=== PATIENT | male | born 1935 | race Caucasian/White ===

== ENCOUNTER 2019-08-19 13:22 | Inpatient (IN) ==
[2019-08-19] MEDS ORDERED: VERSED IV ONE (13:44)
[2019-08-19] MEDS ORDERED: VERSED ONE (13:45)
[2019-08-19] MEDS ORDERED: QUELICIN IV ONE (13:45)
[2019-08-19] MEDS ORDERED: QUELICIN ONE (13:45)
[2019-08-19] MEDS ORDERED: NS 1,000 ML IV ONE (13:47)
[2019-08-19] MEDS ORDERED: NS 1,000 ML ONE (13:49)
[2019-08-19] MEDS ORDERED: VERSED 100 MG in NS 80 ML IV SCH (14:00)
--- NOTE | 2019-08-19 14:19 | Diag Imaging Result Doc PS360 ---
EXAM: CHEST-PORTABLE HISTORY: respiratory distress TECHNIQUE: Single view COMPARISON: 09/22/2017 FINDINGS: There is an endotracheal tube located 3 cm above the shanti. A nasogastric tube overlies the esophagus and stomach. The heart is mildly prominent. The lungs are poorly expanded. No consolidation. Questionable perihilar infiltrates. Prominent atherosclerosis in the aortic arch. IMPRESSION: Endotracheal tube in good position. Questionable perihilar infiltrates. Electronically signed by Ethan Crook 08/19/2019 2:16 PM
[2019-08-19 14:32] LABS: ALLEN TEST YES; BE -13.5 mmoll (-3.0-3.0); BLOOD TYPE ARTERIAL; METHB 0.8 % (0.0-1.5); O2(CT) 19.7 mL/dL (15.0-23.0); PCO2(98.6) 29 mmHg (35-45); PO2(98.6) 149 mmHg (60-100); SAMPLE BLOOD; SAO2 99.5 % (95.0-100.0); SRATE 15 BPM; THB 14.3 g/dL (11.5-17.4); TVOL 500 mL; pH(98.6) 7.24 (7.35-7.45)
[2019-08-19 14:35] LABS: HCO3-(ACT) 14.4 mmoll (20.0-26.0); MODALITY VENTILATOR
[2019-08-19] MEDS ORDERED: SODIUM BICARBONATE 8.4% IV PUSH ONE ×3 (14:37→16:10)
[2019-08-19] MEDS: LEVOPHED 8 MG in D5 1/2 NS 250 ML IV SCH (14:44)
[2019-08-19] MEDS ORDERED: ZOSYN 3.375 GM in NS 50 ML IV ONE (14:50)
[2019-08-19] MEDS ORDERED: SODIUM BICARBONATE 8.4% ONE (14:53)
[2019-08-19] MEDS ORDERED: EPINEPHRINE 4 MG in NS 250 ML IV SCH (15:00)
--- NOTE | 2019-08-19 15:12 | PROVIDER DOCUMENTATION ---
This chart was entered by Jocelyne De Santiago Scribe, acting as scribe for Darrell Doll MD. HPI-Respiratory General - General Source: patient - History of Present Illness-Resp Quality of Pain: reports: tightness Severity in ED: reports: moderate, severe Onset/Duration: reports: this morning Timing: reports: still present, changing over time Cough Quality/Degree: reports: no cough Current Respiratory Medication Therapy: Initiated see nurses note Modifying Factors: worse with: exertion, deep breath Associated Symptoms: reports: hurts to breathe, shortness of breath, short of breath. denies: cough, fever/chills Similar Symptoms Previously?: Yes Recently seen or treated by another doctor?: Yes (was seen at [facility] 1 week ago) <Darrell Doll - Last Filed: 08/19/19 17:02> <Brandin Gorman - Last Filed: 08/19/19 17:18> - General Chief Complaint: Shortness of Breath Stated Complaint: BREATHING DIFFICULTY Time Seen by Provider: 08/19/19 13:32 Allergies/Adverse Reactions: Patient Allergies Allergy/AdvReac Type Severity Reaction Status Date / Time No Known Allergies Allergy Verified 06/28/18 13:05 Home Medications: Home Medication List Medication Instructions Recorded Confirmed Last Taken Type Diltiazem HCl [Diltiazem 24Hr ER 180 mg PO DAILY 09/22/17 06/28/18 07/05/18 07:15 History (Cd)] Insulin Glargine,Hum.rec.anlog 20 unit SQ DAILY 09/22/17 07/05/18 07/05/18 05:30 History [Lantus Solostar] Multivits,Th W-Ca,Fe,Oth Min 1 each PO DAILY 09/22/17 07/05/18 07/05/18 07:15 History [Thera Plus] Amlodipine [Norvasc] 10 mg PO DAILY 05/23/18 06/28/18 07/05/18 07:15 History Ferrous Sulfate 2 tab PO QHS 05/23/18 07/05/18 07/05/18 07:15 History Metoprolol [Lopressor] 0.5 tab PO BID 05/23/18 06/28/18 07/05/18 07:15 History Sevelamer Carbonate [Renvela] 0.8 gm PO DAILY 05/23/18 07/05/18 07/05/18 07:15 History Simvastatin 0.5 tab PO DAILY 05/23/18 07/05/18 07/05/18 07:15 History Hydrocodone/APAP 7.5 mg/325 mg 1 ea PO Q6H PRN PRN #20 tab 07/05/18 Unknown Rx [Roslyn-7.5] - History of Present Illness-Resp Nature of Presenting Problem: 84yowm presents to ED by EMS cc severe shortness of breath. Pt reports he was tested for COVID-[address] Granados and the test was negative. He denies F/C/Cough/N/V/D. He is a dialysis pt and was unable to go today to sever SOB. He is in moderate respiratory distress upon exam. The negative COVID-19 test record is attached, in print, to pt chart. (Darrell Doll) Review of Systems - Adult - REVIEW OF SYSTEMS - ADULT Constitutional: reports: see HPI. denies: chills, fever, fatique Eyes: reports: no symptoms reported Ears, Nose, Mouth & Throat: reports: no symptoms reported Cardiovascular: reports: no symptoms reported Respiratory: reports: see HPI, dyspnea on exertion, shortness of breath. denies: cough, wheezing Gastrointestinal: reports: see HPI. denies: diarrhea, nausea, vomiting Genitourinary: reports: no symptoms reported Musculoskeletal: reports: no symptoms reported Integumentary: reports: no symptoms reported Neurological: reports: no symptoms reported Psychiatric: reports: no symptoms reported Endocrine: reports: no symptoms reported Hematologic/Lymphatic: reports: no symptoms reported Allergic/Immunologic: reports: no symptoms reported All Other Systems: Reviewed and Negative <Darrell Doll - Last Filed: 08/19/19 17:02> Past History - Adult - PAST MEDICAL HISTORY-ADULT Review of Records: reports: Nursing Assessment Review, Medications Reviewed, Social history reviewed & non-contributory. Major Childhood Illnesses: reports: denies history Cardiovascular: reports: HTN Respiratory: reports: denies history Gastrointestinal: reports: denies history Obstetrical/Gynecological: reports: denies history Genitourinary: reports: kidney disease Musculoskeletal: reports: denies history Neurological: reports: denies history Endocrine/Immune: reports: Diabetes Other Conditions: reports: denies history - PRIOR SURGERIES/PROCEDURES Surgical/Procedure History: reports: reviewed, not pertinent - IMMUNIZATION STATUS Childhood Immunizations: See Nurse Assessment Flu Vaccine: See Nurse Assessment - FAMILY HISTORY Family History: reviewed, not pertinent <Darrell Doll - Last Filed: 08/19/19 17:02> Physical Exam-General - PHYSICAL EXAM-ADULT Initial Vital Signs Reviewed: Yes - CONSTITUTIONAL General Appearance: alert, moderate distress. negative: anxious, combative - EYES Eyes: PERRL/EOMI, pink conjunctivae. negative: photophobia - HEAD, EARS, NOSE, MOUTH & THROAT HENMT: normocephalic/atraumatic, moist mucous membranes. negative: angioedema - NECK Neck: non-tender, full range of motion, supple, normal inspection. negative: lymphadenopathy - RESPIRATORY Respiratory: chest non-tender, respiratory distress (moderate), retractions. negative: lungs clear (no sounds heard) - CARDIOVASCULAR Cardiovascular: normal peripheral pulses, regular rate, rhythm. negative: bradycardia, tachycardia - GASTROINTESTINAL (ABDOMEN) Abdominal Exam: normal bowel sounds, non tender, soft. negative: guarding, rebound - MUSCULOSKELETAL Extremity: normal inspection. negative: deformity - SKIN Integumentary: normal color, normal turgor, warm/dry. negative: diaphoresis, jaundice, rash - PSYCHIATRIC Psych/Mental Status: normal mood/affect, oriented x 3. negative: anxious <Darrell Doll - Last Filed: 08/19/19 17:02> Progress - PLAN OF CARE/RESULTS Result Diagrams: 08/19/19 13:40 08/19/19 13:40 - EKG 1 Time of EKG reading by physician:: 15:01 EKG Read and Signed by:: Darrell Doll EKG Interpretation (*Must complete 3 of following elements*): Abnormal (Possible lateral infarct, age undetermined; inferior infarct, age undetermined) Rate: 83 Rhythm: Sinus w/1st degree AV block Hundred: left QRS: RBB WV Interval: normal - XRAY 1 XRAY: Bilateral XRAY Study: Chest Impression: See EMR Report (IMPRESSION: Endotracheal tube in good position. Questionable perihilar infiltrates. Electronically signed by Ethan Crook 08/19/2019 2:16 PM) - CONSULTS/PCP/HOSPITALIST Notification #1 *Consult/PCP/Hospitalist*: Dr. Granados Time Discussed: 14:39 Consult Disposition: Will see in ED #2 Consult: Brandie/DIRECTOR CARDIOLOGY Time Discussed: 16:43 Consult Disposition: Admit <Darrell Doll - Last Filed: 08/19/19 17:02> - PLAN OF CARE/RESULTS Result Diagrams: 08/19/19 13:40 08/19/19 13:40 <Brandin Gorman - Last Filed: 08/19/19 17:18> - PLAN OF CARE/RESULTS Progress/Plan/Lab Results: Vital Signs - 8 hr 08/19/19 13:32 08/19/19 14:04 08/19/19 14:11 Temperature 96.8 F L Pulse Rate 80 74 72 Respiratory Rate 40 H 16 19 Blood Pressure 97/65 85/58 85/49 08/19/19 16:31 08/19/19 16:55 08/19/19 17:03 Temperature 97.5 F L Pulse Rate 89 91 H 92 H Respiratory Rate 28 H 25 H 26 H Blood Pressure 97/56 99/85 114/73 08/19/19 16:16 Influenza Screen - Final Nasopharyngeal Laboratory Results - last 24 hr 08/19/19 08/19/19 08/19/19 13:40 13:40 13:40 WBC RBC Hgb Hct MCV MCH MCHC RDW Std Deviation Plt Count MPV Immature Gran % (Auto) Neut % (Auto) Lymph % (Auto) Cache % (Auto) Eos % (Auto) Baso % (Auto) Immature Gran # (Auto) Neut # (Auto) Lymph # (Auto) Cache # (Auto) Eos # (Auto) Baso # (Auto) PT INR PTT (Actin FS) Specimen Type Sample Site pH pCO2 pO2 HCO3 Base Excess Oxyhemoglobin ABG O2 Sat (Calculated) ABG O2 Saturation ABG Carboxyhemoglobin ABG Methemoglobin Graham Test A-a O2 Difference Total Hemoglobin Lactate Blood Gas Modality Spontaneous Rate FiO2 % Tidal Volume PEEP Sodium 136 Potassium 6.9 H* Chloride 87 L Carbon Dioxide 15 L Anion Gap 34 BUN 67 H Creatinine 7.5 H Estimated GFR/1.73 m2 7 BUN/Creatinine Ratio 9 Glucose 242 H Calculated Osmolality 299 Calcium 8.8 Total Bilirubin 0.95 AST 74 H ALT 56 H Alkaline Phosphatase 234 H Creatine Kinase Troponin T High Sens 118 H* Sph-Y-Nqlvnsxzjbh Pept > 02155 H Total Protein 6.8 Albumin 3.7 Globulin 3.1 Albumin/Globulin Ratio 1.2 Plasma Lactate 08/19/19 08/19/19 08/19/19 13:40 13:40 13:40 WBC 19.84 H RBC 4.31 L Hgb 14.8 Hct 44.0 MCV 102.1 H MCH 34.3 H MCHC 33.6 RDW Std Deviation 16.8 H Plt Count 168 MPV 12.1 H Immature Gran % (Auto) 0.5 Neut % (Auto) 80.3 H Lymph % (Auto) 6.0 L Cache % (Auto) 12.8 H Eos % (Auto) 0.1 Baso % (Auto) 0.3 Immature Gran # (Auto) 0.10 H Neut # (Auto) 15.95 H Lymph # (Auto) 1.19 L Cache # (Auto) 2.53 H Eos # (Auto) 0.01 Baso # (Auto) 0.06 PT 18.6 H INR 1.53 PTT (Actin FS) 29.8 Specimen Type Sample Site pH pCO2 pO2 HCO3 Base Excess Oxyhemoglobin ABG O2 Sat (Calculated) ABG O2 Saturation ABG Carboxyhemoglobin ABG Methemoglobin Graham Test A-a O2 Difference Total Hemoglobin Lactate Blood Gas Modality Spontaneous Rate FiO2 % Tidal Volume PEEP Sodium Potassium Chloride Carbon Dioxide Anion Gap BUN Creatinine Estimated GFR/1.73 m2 BUN/Creatinine Ratio Glucose Calculated Osmolality Calcium Total Bilirubin AST ALT Alkaline Phosphatase Creatine Kinase Troponin T High Sens Bps-B-Joaklqdkxzb Pept Total Protein Albumin Globulin Albumin/Globulin Ratio Plasma Lactate 8.8 H* 08/19/19 08/19/19 08/19/19 13:40 14:25 16:50 WBC RBC Hgb Hct MCV MCH MCHC RDW Std Deviation Plt Count MPV Immature Gran % (Auto) Neut % (Auto) Lymph % (Auto) Cache % (Auto) Eos % (Auto) Baso % (Auto) Immature Gran # (Auto) Neut # (Auto) Lymph # (Auto) Cache # (Auto) Eos # (Auto) Baso # (Auto) PT INR PTT (Actin FS) Specimen Type ARTERIAL ARTERIAL Sample Site L RADIAL L RADIAL pH 7.24 L 7.31 L pCO2 29 L 34 L pO2 149 H 200 H HCO3 14.4 L 18.5 L Base Excess -13.5 L -8.2 L Oxyhemoglobin 97.0 97.4 ABG O2 Sat (Calculated) 19.7 19.3 ABG O2 Saturation 99.5 99.5 ABG Carboxyhemoglobin 1.80 1.30 ABG Methemoglobin 0.8 0.8 Graham Test YES YES A-a O2 Difference 528.0 471.0 Total Hemoglobin 14.3 13.8 Lactate 9.30 H* 8.10 H* Blood Gas Modality VENTILATOR VENTILATOR Spontaneous Rate 15 15 FiO2 % 100.0 100.0 Tidal Volume 500 500 PEEP 5.0 5.0 Sodium Potassium Chloride Carbon Dioxide Anion Gap BUN Creatinine Estimated GFR/1.73 m2 BUN/Creatinine Ratio Glucose Calculated Osmolality Calcium Total Bilirubin AST ALT Alkaline Phosphatase Creatine Kinase 162 Troponin T High Sens Jri-K-Qhybqioljda Pept Total Protein Albumin Globulin Albumin/Globulin Ratio Plasma Lactate Orders Category Date Time Status Cardiac Monitoring NOW Care 08/19/19 15:33 Active Isolation [Isolation Precautions Setup] NOW Care 08/19/19 14:02 Active Notify Provider of NEWS Score NOW Care 08/19/19 15:33 Active CHEST-1 VIEW [RAD] Stat Exams 08/19/19 15:33 Completed CHEST-PORTABLE [RAD] Stat Exams 08/19/19 13:34 Completed ABG [RESP] Routine Lab 08/19/19 14:25 Completed ABG [RESP] Routine Lab 08/19/19 16:50 Completed BLOOD CULTURE [BLDCUL] Stat Lab 08/19/19 14:16 Results CBC WITH ELECTRONIC DIFF [HEME] Stat Lab 08/19/19 13:40 Completed CK PROFILE [SP CHEM] Stat Lab 08/19/19 13:40 Completed COMPREHENSIVE METABOLIC PANEL [CHEM] Stat Lab 08/19/19 13:40 Completed INFLUENZA SCREEN A/B Stat Lab 08/19/19 16:16 Completed LACTATE, PLASMA [CHEM] Lab 08/19/19 18:45 Uncollected LACTATE, PLASMA [CHEM] Lab 08/19/19 21:45 Uncollected LACTATE, PLASMA [CHEM] Q3H Lab 08/19/19 13:40 Completed PRO B-NATRIURETIC PEPTIDE Stat Lab 08/19/19 13:40 Completed PT [PROTIME WITH INR] [COAG] Stat Lab 08/19/19 13:40 Completed PTT [COAG] Stat Lab 08/19/19 13:40 Completed TROPONIN T HIGH SENSITIVITY Stat Lab 08/19/19 13:40 Completed URINALYSIS W/POSS RFLX CULT [URINALYSIS] Stat Lab 08/19/19 15:33 Uncollected 0.9% Sodium Chloride Inj [Ns] 1,000 ml Med 08/19/19 13:49 Discontinued .ROUTE As directed 0.9% Sodium Chloride Inj [Ns] 1,000 ml Med 08/19/19 13:47 Discontinued IV 999 mls/hr 0.9% Sodium Chloride Inj [Ns] 250 ml Med 08/19/19 15:00 Active Epinephrine 4 mg IV As Directed mls/hr 0.9% Sodium Chloride Inj [Ns] 80 ml Med 08/19/19 14:00 Active Midazolam [Versed] 100 mg IV As Directed mls/hr Calcium Gluconate Med 08/19/19 16:17 Discontinued 1 gm IV PUSH NOW ONE Dextrose 5%-0.45% NaCl Inj [D5 05/23 Ns] 250 ml Med 08/19/19 14:00 Active Norepinephrine [Levophed] 8 mg IV As Directed mls/hr Midazolam [Versed] Med 08/19/19 13:45 Discontinued 5 mg .ROUTE .STK-MED ONE Midazolam [Versed] Med 08/19/19 13:44 Discontinued 5 mg IV NOW ONE Piperacillin/Tazobactam [Zosyn] 2.25 gm Med 08/19/19 16:30 Active 0.9% Sodium Chloride Inj [Ns] 50 ml IV Q8H Piperacillin/Tazobactam [Zosyn] 3.375 gm Med 08/19/19 14:50 Discontinued 0.9% Sodium Chloride Inj [Ns] 50 ml IV NOW Sodium Bicarbonate 8.4% Med 08/19/19 14:53 Discontinued 50 meq .ROUTE .STK-MED ONE Sodium Bicarbonate 8.4% Med 08/19/19 14:37 Discontinued 50 meq IV PUSH NOW ONE Sodium Bicarbonate 8.4% Med 08/19/19 14:50 Discontinued 50 meq IV PUSH NOW ONE Sodium Bicarbonate 8.4% Med 08/19/19 16:10 Discontinued 50 meq IV PUSH NOW ONE Succinylcholine [Quelicin] Med 08/19/19 13:45 Discontinued 100 mg IV NOW ONE Succinylcholine [Quelicin] Med 08/19/19 13:45 Discontinued 200 mg .ROUTE .STK-MED ONE Vancomycin 1 gm/Ns Med 08/19/19 16:30 Active 1 gm in 250 ml IV AFTER DIALYSIS Vancomycin 1 gm/Ns Med 08/19/19 16:18 Active 1 gm in 250 ml IV NOW O2 Per Protocol Stat Oth 08/19/19 15:33 Completed Ventilator Order Stat Oth 08/19/19 15:53 Active EKG [EKG] Stat Ther 08/19/19 14:08 Draft Transfer/Admit Order [TRANSFER] Routine Transfer 08/19/19 16:42 Ordered 1435-pt had rhythm changes 1435-Dr. Doll at bedside and feels a good femoral pulse 1437-Bicarb given 1437-Pacer Pads on pt 1437-b/p 71/45 1438-Bicarb given 1438-good femoral pulse 1439-Dr. Granados now at bedside 1444-Levophed drip started 1445-b/p 92/49 1450-Bicarb given (Darrell Doll) upon arrival to room. Patient was in severe respiratory distress, but was fully awake, alert and oriented. I asked the patient if he had any advanced directives or a living will. He replied, "No". I asked if he had any family I could call. He replied, "No". I asked, If I need to put a tube in you to help you breath, may I do so? The patient replied, "Yes, do what ever you have to do to help me? I can't do this for much longer." Irma Elise, RN was at the bedside with me during this conversation. (Brandin Gorman) Procedures - INTUBATION Time of Intubation: 13:48 (Brandin Gorman/DIRECTOR CARDIOLOGY perfomed procedure w/Dr. Doll constant supervision) Intubation Method: orotracheal Equipment: Glidescope Tube Size (cm): 7.5 Pretreated with 100% Oxygen?: Yes Breath Sounds after Intubation: equal ETT Primary Tube Confirmation: Chest Rise and Fall, Tube placement verified on XRAY Intubation Complications: no complications Vent Settings: See Respiratory Therapy Notes Procedure Comment: 1344-5mg versed;1345-100mg succs; post intubation 22 @lip, good color doyle <Darrell Doll - Last Filed: 08/19/19 17:02> Departure - Departure Date of Disposition Decision: 08/19/19 Time of Disposition Decision: 14:39 Certified Medical Emergency: Emergent - Critical Care Note This patient required my direct & personal management of CC.: Yes Total Time (mins): 60 Critical Care Statement: This patient required my direct personal management to treat or rule out processes, the absence of which, could potentiallly result in sudden, clinically significant life or limb threatening deterioration. <Darrell Doll - Last Filed: 08/19/19 17:02> <Brandin Gorman - Last Filed: 08/19/19 17:18> - Departure DIAGNOSIS: Severe sepsis, Pneumonia, Respiratory distress, Hyperkalemia, CHF exacerbation Disposition: ADMITTED INPATIENT 09 Condition: Fair Referrals and Follow-Ups: None,PCP [Primary Care Provider] - Attestation - Physician/ MONIKA Attestation The physician spent face to face time with patient:: Yes Advanced Practice Provider documentation review:: Supervising physician onsite a nd consulted in the evaluation and care of this patient. The physician did have a face to face encounter with the patient. <Darrell Doll - Last Filed: 08/19/19 17:02> Sepsis: Tissue Perfusion Assmt - Physical Exam Assessment Date: 08/19/19 Time Assessment Initialized: 17:04 Lung Sounds: crackles Heart Sounds: Regular Capillary Refill Time: Less Than 2 Seconds Peripheral Pulse Evaluation: radial (R): 4+, radial (L): 4+, dorsalis-pedis (R): 4+, dorsalis-pedis (L): 4+ Skin Exam: flushed - Alternative Fluid Bolus Bolus Option: Alternative Fluid Resuscitation Bolus for morbidly obese patients with a BMI >30, Refer to [facility] Body Weight Chart for Reference. Is patient's BMI >30?: No Patient's BMI: 26.5 Fluid Bolus dosed using the [facility] [place] Body Weight Chart: No (Pt advised to get [address] Granados) - Impression Impression: Tissue Perfusion Adequate - Plan Plan: See Orders <Darrell Doll - Last Filed: 08/19/19 17:02> - Physical Exam Vital Signs: Last Vital Signs Temp 97.5 F L 08/19/19 17:03 Pulse 92 H 08/19/19 17:03 Resp 26 H 08/19/19 17:03 BP 114/73 08/19/19 17:03 Height 5 ft 8 in Weight 78.925 kg 08/19/19 17:04 see chart (Darrell Doll) This chart was documented by the indicated scribe, (Jocelyne De Santiago, Lonny[place]ian) and accurately reflects the services I performed and decisions made by me, Darrell Doll MD, as attested by the provider's signature.
[2019-08-19 15:26] LABS: BASO# 0.06 X1000 (0.0-0.2); BASO% 0.3 % (0.0-0.8); EOS# 0.01 X1000 (0.0-0.7); EOS% 0.1 % (0.0-10.0); HEMOGLOBIN 14.8 g/dL (14.0-18.0); IMM GRAN% 0.5 % (0.0-0.5); LYMPH# 1.19 X1000 (1.2-3.4); MCH 34.3 PG (27-31); MCHC 33.6 g/dL (33-37); MCV 102.1 FL (81-99); MONO# 2.53 X1000 (0.11-0.59); MONO% 12.8 % (1.7-9.3); MPV 12.1 FL (7.4-10.4); NEUT# 15.95 X1000 (1.4-6.5); NEUT% 80.3 % (42.2-75.2); PLT 168 X1000 (130-400); RBC 4.31 XMIL (4.7-6.1); RDW 16.8 % (11.5-14.5); WBC 19.84 X1000 (4.8-10.8)
[2019-08-19 15:32] LABS: INR 1.53; PROTIME 18.6 Seconds (11.0-16.0)
[2019-08-19 15:33] LABS: PTT 29.8 Seconds (22.3-41.8)
--- NOTE | 2019-08-19 15:36 | EKG Report ---
Test Performed on : 08/19/2019 3:00:18 PM Test Reason : sob Blood Pressure : / mmHG Vent. Rate : 083 BPM Atrial Rate : 083 BPM P-R Int : 248 ms QRS Dur : 148 ms QT Int : 472 ms P-R-T Axes : -16 -74 097 degrees QTc Int : 554 ms Sinus rhythm. with 1st degree AV block. Left axis deviation Right bundle branch block Possible Lateral infarct , age undetermined Inferior infarct , age undetermined Abnormal ECG When compared with ECG of 23-MAY-2018 14:57, Left anterior fascicular block is no longer present Right bundle branch block is now present Borderline criteria for Lateral infarct are now present Inferior infarct is now present Unconfirmed Result
[2019-08-19 16:01] LABS: ALB/GLOB RATIO 1.2; ALBUMIN 3.7 g/dL (3.5-5.0); CALCIUM 8.8 mg/dL (8.8-10.2); CREATININE 7.5 mg/dL (0.7-1.2); POTASSIUM 6.9 mmol/L (3.5-5.1); TOTAL BILIRUBIN 0.95 mg/dL (0.20-1.00); TOTAL PROTEIN 6.8 g/dL (6.3-8.3)
--- NOTE | 2019-08-19 16:03 | Diag Imaging Result Doc PS360 ---
CHEST-1 VIEW - 08/19/2019 3:49 PM INDICATION: tube placement COMPARISON: 2:00 PM FINDINGS: There is a stable endotracheal tube in good position at T3-T4. There is a nasogastric tube in good position in the stomach. There is cardiomegaly and pulmonary vascular congestion. There are some patchy nonspecific bibasilar infiltrates stable from prior. IMPRESSION: No complication or change from prior. Electronically signed by Malik Pizano 08/19/2019 4:00 PM
[2019-08-19] MEDS ORDERED: CALCIUM GLUCONATE IV PUSH ONE (16:17)
[2019-08-19] MEDS ORDERED: VANCOMYCIN 1 GM/NS 1 GM/250 ML IVPB IV ONE (16:18)
[2019-08-19] MEDS ORDERED: VANCOMYCIN 1 GM/NS 1 GM/250 ML IVPB IV SCH (16:30)
--- NOTE | 2019-08-19 16:48 | NEPHROLOGY CONSULTATION ---
DATE: 08/19/2019 REASON FOR CONSULTATION: Renal failure, septic shock, and hyperkalemia. HISTORY OF PRESENT ILLNESS: Mr. Peacock is an 84-year-old, white male that dialyzes in our outpatient unit. He has been recently ill with a cough. He underwent Covid testing last week. The result is negative. However, today, he was increasingly short of breath and therefore was brought to the hospital instead of taken to dialysis. By the time he arrived, he was in severe respiratory distress and progressed rapidly to require mechanical ventilation and intubation. He is not able to provide any further history. Unfortunately, he has very limited social support. PAST MEDICAL HISTORY: Includes diabetes, hypertension, peripheral vascular disease, hyperlipidemia, coronary artery disease. HOME MEDICATIONS: Include diltiazem, insulin, multivitamin, amlodipine, iron sulfate, metoprolol, sevelamer, simvastatin, hydrocodone. ALLERGIES: None. SOCIAL HISTORY: As above. He is and lives alone in [place]. He has a son who lives out of town and he has neighbors who check on him. FAMILY HISTORY: Otherwise not obtainable. REVIEW OF SYSTEMS: Otherwise not obtainable. PHYSICAL EXAMINATION: Vital Signs: Blood pressure 97/65, heart rate 80, respirations 40. These were prior to intubation. At the time of my exam, he is breathing with the ventilator at around 20 breaths per minute. He is coughing. Blood pressure around 100/50 on Levophed. Skin: Cool and dry. There is a dry ulcer on the right fourth toe. Some mottling around the knees. Pupils are equal. Conjunctivae are pink. Oropharynx is dry. Neck veins are distended. PMI is displaced and enlarged. Regular rhythm with tachycardia. No gallops or murmurs are audible. Lungs are equal with scattered crackles. Abdomen: Soft, nontender. Bowel sounds are not appreciated. No palpable organomegaly. No bruits. Extremities: With 2+ edema extending up on the back. Distal pulses are not appreciated. Neurologic Examination: Nonfocal. He moves all of his extremities purposefully. IMPRESSION: 1. Acute respiratory failure. Pneumonia versus pulmonary edema/acute systolic heart failure. His white count is elevated at 19.8. He is afebrile. Chest x-ray is not very revealing. Covid test negative. Continue ventilator support, empiric broad-spectrum antibiotics. Volume management as we are able with dialysis once his blood pressure is better. 2. Hyperkalemia. We will administer a single ampule of calcium gluconate at this time and we will plan for dialysis today using a 2 K bath with no ultrafiltration. Sustained low- efficiency dialysis tomorrow. 3. Chronic kidney disease 5D. Plan as above. 4. Metabolic acidosis. Likely related to lactate. I will repeat blood gas on arrival to the unit. cc: Domenic Kenyon MD
[2019-08-19 16:57] LABS: ALLEN TEST YES; BE -8.2 mmoll (-3.0-3.0); BLOOD TYPE ARTERIAL; HCO3-(ACT) 18.5 mmoll (20.0-26.0); METHB 0.8 % (0.0-1.5); O2(CT) 19.3 mL/dL (15.0-23.0); O2HB 97.4 % (95.0-99.0); PCO2(98.6) 34 mmHg (35-45); PO2(98.6) 200 mmHg (60-100); SAMPLE BLOOD; SAO2 99.5 % (95.0-100.0); SRATE 15 BPM; THB 13.8 g/dL (11.5-17.4); TVOL 500 mL; pH(98.6) 7.31 (7.35-7.45)
[2019-08-19 17:02] LABS: MODALITY VENTILATOR
[2019-08-19] MEDS ORDERED: HEPARIN IV PRN (17:39)
[2019-08-19] MEDS ORDERED: NS 2,000 ML MISC PRN (17:39)
[2019-08-19] MEDS ORDERED: ZOFRAN IV PRN (18:30)
[2019-08-19] MEDS: DIPRIVAN 1% 1,000 MG/100 ML BOTTLE IV SCH (18:47)
[2019-08-19] MEDS: ZOSYN 2.25 GM in NS 50 ML IV SCH (18:51)
[2019-08-19 22:41] LABS: CALCIUM 8.2 mg/dL (8.8-10.2); CREATININE 4.4 mg/dL (0.7-1.2); PHOSPHORUS 5.5 mg/dL (2.7-4.5); POTASSIUM 4.7 mmol/L (3.5-5.1)
[2019-08-20] MEDS: LEVOPHED 8 MG in D5 1/2 NS 250 ML IV SCH ×2 (00:20→18:01)
[2019-08-20] MEDS: DIPRIVAN 1% 1,000 MG/100 ML BOTTLE IV SCH ×6 (00:21→22:54)
[2019-08-20] MEDS: ZOSYN 2.25 GM in NS 50 ML IV SCH ×3 (01:07→15:53)
[2019-08-20] MEDS: PROTONIX IV SCH (01:07)
[2019-08-20] MEDS: SODIUM CHLORIDE 0.9% INJ SCH (01:08)
[2019-08-20 04:57] LABS: ALLEN TEST YES; BE 0.7 mmoll (-3.0-3.0); BLOOD TYPE ARTERIAL; HCO3-(ACT) 25.5 mmoll (20.0-26.0); METHB 0.9 % (0.0-1.5); O2(CT) 19.9 mL/dL (15.0-23.0); O2HB 96.9 % (95.0-99.0); PCO2(98.6) 35 mmHg (35-45); PO2(98.6) 116 mmHg (60-100); SAMPLE BLOOD; SAO2 99.3 % (95.0-100.0); SRATE 15 BPM; THB 14.5 g/dL (11.5-17.4); TVOL 500 mL; pH(98.6) 7.45 (7.35-7.45)
[2019-08-20 04:59] LABS: MODALITY VENTILATOR
[2019-08-20 05:13] LABS: BASO# 0.08 X1000 (0.0-0.2); BASO% 0.5 % (0.0-0.8); EOS# 0.15 X1000 (0.0-0.7); EOS% 0.9 % (0.0-10.0); HEMATOCRIT 38.4 % (42.0-52.0); HEMOGLOBIN 13.2 g/dL (14.0-18.0); IMM GRAN# 0.06 X1000 (0.0-0.04); IMM GRAN% 0.4 % (0.0-0.5); LYMPH# 1.18 X1000 (1.2-3.4); MCH 34.5 PG (27-31); MCHC 34.4 g/dL (33-37); MCV 100.3 FL (81-99); MONO% 10.6 % (1.7-9.3); MPV 11.6 FL (7.4-10.4); NEUT# 13.69 X1000 (1.4-6.5); NEUT% 80.6 % (42.2-75.2); PLT 133 X1000 (130-400); RBC 3.83 XMIL (4.7-6.1); RDW 16.4 % (11.5-14.5); WBC 16.96 X1000 (4.8-10.8)
[2019-08-20 05:32] LABS: URINE SOURCE CATH
[2019-08-20 05:37] LABS: BILIRUBIN URINE NEGATIVE (NEGATIVE); BLOOD URINE MODERATE (NEGATIVE); COLOR YELLOW; GLUCOSE URINE 150 mg/dL (NEGATIVE); KETONE URINE TRACE mg/dL (NEGATIVE); LEUKOCYTES URINE SMALL (NEGATIVE); NITRITE URINE NEGATIVE (NEGATIVE); PROTEIN URINE 200 mg/dL (NEGATIVE); SP GRAVITY URINE 1.013; TURBIDITY URINE HAZY (CLEAR); UROBILINOGEN URINE NORMAL (NORMAL)
[2019-08-20 05:39] LABS: UR EPITHELIAL CELLS <10 /HPF (<10); URINE BACTERIA NEGATIVE /HPF; URINE RBC TNTC /HPF (<10); URINE WBC TNTC /HPF (<10)
[2019-08-20 06:02] LABS: ALBUMIN 2.7 g/dL (3.5-5.0); CALCIUM 7.9 mg/dL (8.8-10.2); CREATININE 5.4 mg/dL (0.7-1.2); MAGNESIUM 2.4 mg/dL (1.5-2.7); POTASSIUM 5.1 mmol/L (3.5-5.1); TOTAL BILIRUBIN 0.91 mg/dL (0.20-1.00); TOTAL PROTEIN 5.5 g/dL (6.3-8.3)
[2019-08-20 06:18] LABS: URINE CASTS NONE SEEN; URINE CRYSTALS NONE SEEN; URINE YEAST NONE SEEN
[2019-08-20 06:19] LABS: URINE SMALL ROUND CELLS NONE SEEN
--- NOTE | 2019-08-20 07:41 | Diag Imaging Result Doc PS360 ---
EXAM: CHEST-PORTABLE INDICATION: dyspnea TECHNIQUE: One view COMPARISON: 08/19/2019 FINDINGS: Support tubes and lines are in stable positions. Basilar infiltrates appear slightly worse, at least on the right, likely representing worsening pulmonary edema. There may be a small effusion on the right as well. Pulmonary venous congestion is similar to the previous study. Cardiac silhouette is stable. IMPRESSION: Interval slight worsening of basilar infiltrates, particularly on the right. Electronically signed by Bao Rosenthal 08/20/2019 7:38 AM
[2019-08-20] MEDS: HEPARIN SUBQ SCH ×2 (08:11→20:12)
[2019-08-20] MEDS ORDERED: NS 2,000 ML MISC PRN (08:37)
--- NOTE | 2019-08-20 14:54 | PROGRESS NOTE ---
DATE: 08/20/2019 SUBJECTIVE: The patient intubated and sedated, but no major issues overnight. OBJECTIVE: Blood pressure 107/60, heart rate 91, respiratory rate 15, temperature 98 degrees, and 100% on 50%.Cardiovascular: Regular rate and rhythm. Pulmonary: Bilateral breath sounds. Clear to auscultation. GI: Soft. Nontender. Nondistended. Bowel sounds are positive. He looks stable. LABORATORY DATA: White count 16, hemoglobin and hematocrit 13 and 38, MCV 100, and platelets were 133, pH 7.45, pCO2 35, PO2 116. He is down to 50%. Creatinine of 5.4. His AST and ALT are through the roof, 836 and 541. PROBLEM LIST: 1. Acute on chronic hypoxic respiratory failure. I think this is due to volume overload. I think it is unlikely this patient has COVID, but unfortunately he has risk factors for COVID. He has interstitial infiltrates and hypoxic respiratory failure. Anyway's, he ended up getting reintubated. His chest x-ray shows perihilar infiltrates retested. He has not had a fever. I do not think we have done other COVID testing besides a swab. I will go ahead and check a CRP. His CK was normal which would argue against COVID. We will check a CRP, and his proBNP was greater than 35,000 but again he is a dialysis patient. He has improved since he has had dialysis. His chest x-ray today looked worse so we are still waiting further testing. He is also on broad-spectrum antibiotics. 2. Pneumonitis. He is on vancomycin and Zosyn. 3. Septic shock presumably due to pneumonia. He is still on Levophed. We will continue to follow. I have switched him to propofol because he was not tolerating Versed, and that probably is not a very good choice in the setting of a renal failure patient. Ativan is acceptable but, Versed I thing is contraindicated because of accumulation of metabolites. 4. Hyperglycemia. He is on insulin. His medicines have not been updated. We will work on that, but we will start to get things situated as far as that is concerned. 5. Disposition: Prognosis guarded. Continue to follow closely. cc: Noah Gonzalez MD
--- NOTE | 2019-08-20 15:05 | HISTORY AND PHYSICAL ---
CHIEF COMPLAINT: Shortness of breath. HISTORY: This is an 84-year-old gentleman. He was here not too long ago when he had to have COVID testing. In any case, he came in for shortness of breath. He has had shortness of breath for about 3 days. History is gleaned from the chart because there were no available folks. I do not think he has a POA or family. He had significant shortness of breath. He was hypoxic. He had a negative COVID test about 4 days ago. I think that there was a concern about him getting dialyzed so he had to have the COVID test which was negative. He is not febrile, but was extremely hypoxic when he came in. In fact, he was hypothermic. He was intubated pretty quickly. His initial lactate was 9.3. His initial PO2 was 149, that was on 100%. He was urgently dialyzed subsequently. His lactate was high, but repeat levels were normal. He did have bilateral interstitial infiltrates, but he has been afebrile. He is certainly at risk for COVID, but has had recent testing that is negative, but he qualified I guess for retesting and was retested in the ER. PAST MEDICAL HISTORY: 1. Diabetes type 2, insulin-dependent. 2. Hypertension. 3. PVD. 4. Dyslipidemia. 5. CAD. PAST SURGICAL HISTORY: I do not have a lot of information. SOCIAL HISTORY: No tobacco or ethanol currently. He does have a son who lives out of town, but he is otherwise . ALLERGIES: No known drug allergies. FAMILY HISTORY: Reviewed and not available. MEDICATIONS: 1. Ferrous sulfate 325 daily. 2. Cardizem 240 daily. 3. Lantus 20 daily. 4. Lopressor 25 daily. 5. Norvasc 10 daily. 6. Sevelamer 0.8. 7. Simvastatin 40 daily. 8. Multivitamin daily. 9. Jansen daily. REVIEW OF SYSTEMS: Unobtainable. PHYSICAL EXAMINATION: VITAL SIGNS: When I saw him around 17:00, 120/74, heart rate 100, respiratory rate 18, and temperature 97.7 degrees GENERAL: A well-developed male in no acute distress. HEENT: Head exam was normocephalic and atraumatic. Eye exam: Pupils equal, round, and reactive to light. Extraocular movements were intact. Ears, nose and throat exam with moist mucous membranes and intubated. NECK: Supple. CARDIOVASCULAR: Tachy. PULMONARY: Rales, but no wheezing. GI: Soft, nontender, and nondistended. Bowel sounds are positive. NEUROLOGIC: Nonfocal. MUSCULOSKELETAL: 4 to 5 in all 4 extremities. LABORATORY DATA: White count 16.9, hemoglobin and hematocrit 13 and 38, and platelets of 133,000, BUN and creatinine of 52 and 5.4, glucose of 219, AST of 834, and ALT of 541; that is from today not yesterday. Lactate initially 8.8. Chest x-ray showed bilateral infiltrates. ASSESSMENT: 1. An 84-year-old male presenting with hypoxic respiratory failure. Apparently, he has at least missed 1 dialysis today and came in short of breath. It is not clear that he has COVID. There is no fever history or prodrome. The testing for COVID, I am not sure what the indication was, except that I think, if I understand correctly, because he was getting dialysis at an outside facility. In any case, he has been intubated. Pulmonary will be consulted. We will continue to follow closely. 2. Pneumonia versus pneumonitis. He does not clearly have markers for PE, but we will get a CRP, D-dimer, and procalcitonin just to figure out a little bit better about what we are dealing with. Procalcitonin tends to be not positive in COVID, but it is not clear completely. In any case, we are going to see how things go. 3. Diabetes. We will need to check A1c sliding scale insulin. 4. Septic shock. We will continue vasopressors as needed. TIME SPENT: 35 minute critical care time for mechanical intubation. cc: Noah Gonzalez MD
[2019-08-20] MEDS: HUMULIN R SUBQ SCH ×2 (15:53→20:15)
--- NOTE | 2019-08-20 17:49 | NEPHROLOGY PROGRESS NOTE ---
DATE: 08/20/2019 SUBJECTIVE: He remains sedated on the ventilator, but he does arouse during sedation vacation. OBJECTIVE: Vital Signs: Blood pressure 113/72, heart rate 83, respirations 15, and afebrile. Intake 400 mL. Output 1.2 L. General: As above. Skin: Warm and dry with bruising. No change. Neck: Neck veins are distended. Trachea is midline. Cardiovascular: Heart is regular. No gallops or murmurs are audible. Lungs: Diffuse crackles. Abdomen: Soft and nontender. Bowel sounds are present. Extremities: 3+ edema. No clubbing or cyanosis. IMPRESSION: Respiratory failure. He does have leukocytosis. Chest x-ray has been most consistent with pulmonary edema though he certainly could have pneumonia. He is receiving empiric broad-spectrum antibiotics. SLED today with a goal of 4 L ultrafiltration. Vasopressor support as needed. We will continue daily dialysis as we work to achieve a euvolemic state. Electrolytes and acid-base are acceptable. He does have evidence of shock liver. cc: Domenic Kenyon MD
[2019-08-20] MEDS ORDERED: VANCOMYCIN 1 GM/NS 1 GM/250 ML IVPB IV ONE (18:00)
[2019-08-21] MEDS: PROTONIX IV SCH (00:08)
[2019-08-21] MEDS: ZOSYN 2.25 GM in NS 50 ML IV SCH ×3 (00:08→16:25)
[2019-08-21] MEDS: DIPRIVAN 1% 1,000 MG/100 ML BOTTLE IV SCH ×2 (02:34→06:30)
[2019-08-21] MEDS: LEVOPHED 8 MG in D5 1/2 NS 250 ML IV SCH ×2 (05:05→20:00)
[2019-08-21 05:14] LABS: ALLEN TEST YES; BE -4.5 mmoll (-3.0-3.0); BLOOD TYPE ARTERIAL; HCO3-(ACT) 21.4 mmoll (20.0-26.0); METHB 1.6 % (0.0-1.5); O2(CT) 20.3 mL/dL (15.0-23.0); O2HB 95.9 % (95.0-99.0); PCO2(98.6) 36 mmHg (35-45); PO2(98.6) 133 mmHg (60-100); SAMPLE BLOOD; SRATE 15 BPM; THB 14.9 g/dL (11.5-17.4); TVOL 500 mL; pH(98.6) 7.36 (7.35-7.45)
[2019-08-21 05:16] LABS: MODALITY VENTILATOR
[2019-08-21 06:06] LABS: MCH 34.9 PG (27-31); MCHC 34.1 g/dL (33-37); MCV 102.2 FL (81-99); MPV 11.4 FL (7.4-10.4); RBC 4.01 XMIL (4.7-6.1); RDW 17.4 % (11.5-14.5); WBC 14.24 X1000 (4.8-10.8)
[2019-08-21 06:10] LABS: HEMOGLOBIN A1C 8.6 % (4.8-6.0)
[2019-08-21 06:14] LABS: ALBUMIN 2.5 g/dL (3.5-5.0); CALCIUM 8.3 mg/dL (8.8-10.2); CREATININE 3.9 mg/dL (0.7-1.2); PHOSPHORUS 5.3 mg/dL (2.7-4.5); POTASSIUM 4.9 mmol/L (3.5-5.1)
[2019-08-21] MEDS: HUMULIN R SUBQ SCH ×4 (06:16→22:00)
--- NOTE | 2019-08-21 07:05 | Diag Imaging Result Doc PS360 ---
CHEST-PORTABLE - 08/21/2019 INDICATION: dyspnea COMPARISON: 08/20/2019 FINDINGS: Support lines and tubes are stable and in good position. Stable bibasilar opacifications most likely pleural effusions. Stable mild cardiomegaly. No new infiltrates. IMPRESSION: No change from prior. Electronically signed by Malik Pizano 08/21/2019 7:02 AM
[2019-08-21] MEDS: HEPARIN SUBQ SCH ×2 (08:16→20:00)
--- NOTE | 2019-08-21 11:02 | CONSULTATION ---
DATE OF CONSULTATION: 08/21/2019 REFERRING PHYSICIAN: Dr. Travis Null. CHIEF COMPLAINT: Evaluation for respiratory failure, shock in a patient with end-stage renal disease and sepsis. HISTORY OF PRESENTING ILLNESS: This is an 84-year-old man who missed dialysis and came with volume overload and respiratory failure, intubated. Found to be in shock and elevated white count. He is on pressors and ventilator, antibiotics. He was tested for Covid- 19 in [place] but being retested here in the hospital given that he is elderly, in shock, with multiple risk factors. PAST MEDICAL HISTORY: Coronary artery disease, hyperlipidemia, peripheral vascular disease, hypertension, diabetes. PAST SURGICAL HISTORY: As above. Otherwise noncontributory. SOCIAL HISTORY: . Nonsmoker. ALLERGIES: No known drug allergies. FAMILY HISTORY: Noncontributory. MEDICATIONS: Medications at home and in the hospital were reviewed. In the hospital, the medicines include heparin, Ativan, morphine. He was earlier on Diprivan. We discontinued that since he is in shock. He is on Levophed, Protonix, Zosyn, and vancomycin. PHYSICAL EXAMINATION: Vital Signs: Temperature 98.1, pulse rate 103, blood pressure is 96/61, and pulse rate of 65. Head and Neck: Examined. Trachea midline. ET tube in place. Chest Examination: Reduced entry. Crackles bilaterally. Cardiac Examination: S1, S2. Abdominal Examination: Nontender. Diminished bowel sounds. Lower Limb Examination: No pedal edema. Neurologic Examination: Sedated. LABORATORIES AND INVESTIGATIONS: Chest x-ray shows congestive heart failure and pulmonary edema. ProBNP was more than 35,000. Covid-19 testing is pending. Influenza screen is negative. Blood cultures are pending. PH of 7.36, PO2 of 133, pCO2 of 36. He is on assist- control, ventilation rate of 15, FiO2 of 50%, tidal volume 500, and PEEP of 5. Chemistry and CBC notes a WBC of 14.24, platelets 124,000, creatinine is 3.9, potassium is 4.9. ASSESSMENT AND PLAN: This is an 84-year-old gentleman with a past history as detailed above, with 1-end-stage renal disease, missed dialysis, recent negative Covid-19 testing negative in [facility]. Presented to the hospital with 2-pulmonary edema, 3-sepsis, 4-septic shock, 5-respiratory failure, acute hypoxemic in nature. During his hospital course, he also developed 6- ventricular tachycardia and atrial fibrillation. I consulted cardiology. Ordered an electrocardiogram and ordered an echocardiogram. I did order the AC ventilator settings and will adjust and titrate to the patient's needs and monitor closely. I am titrating his Levophed and closely monitoring the responses and adjusting accordingly per clinical protocols. Deep venous thrombosis and gastrointestinal prophylaxis, antibiotics. Cardiology consulted for his ventricular tachycardia. Renal is involved for his end-stage renal disease and pulmonary edema. We will closely monitor his blood gases, labs, and chest x-ray as I ordered. Thank you for the courtesy of this consultation. Critical Care time 32 minutes cc: Anthony Capellan MD MTDD
--- NOTE | 2019-08-21 11:39 | NEPHROLOGY PROGRESS NOTE ---
DATE: 08/21/2019 SUBJECTIVE: He remains sedated on the ventilator using propofol. He is still requiring Levophed. Short nonsustained episodes of ventricular tachycardia. OBJECTIVE: Vital Signs: Blood pressure 96/61, heart rate 103, respirations 15, afebrile. General: He is sedated as above. No distress. Skin: Warm and dry with multiple bruises. HEENT: Conjunctivae are pink. Pupils are equal. Neck: The neck veins are distended. Trachea is midline. Heart: PMI is enlarged. Auscultation demonstrates an irregular rhythm with tachycardia. Lungs: Have equal breath sounds, clear. Abdomen: Soft, nontender. Diminished bowel sounds. No organomegaly. Extremities: There is 2+ edema. No clubbing or cyanosis. IMPRESSION AND PLAN: Chronic kidney disease 5D with volume overload. Chest x- ray is actually quite clear with the exception of a right pleural effusion. He does have neck vein distention, but he is on positive pressure ventilation. He does have some peripheral edema. However, he is still requiring vasopressor support for his blood pressure. Chemistries and acid-base are acceptable and do not necessitate dialysis today, so we will withhold treatment today and reevaluate in the morning. Hemoglobin is excellent. Medication review finds no changes that are required. cc: Domenic Kenyon MD MTDD
[2019-08-21] MEDS: MORPHINE IV PRN ×3 (11:45→20:01)
[2019-08-21] MEDS: ATIVAN IV PRN ×6 (11:50→22:43)
[2019-08-21] MEDS ORDERED: LOPRESSOR IV PRN ×2 (12:20→22:15)
--- NOTE | 2019-08-21 12:43 | EKG Report ---
Test Performed on : 08/21/2019 09:45:31 AM Test Reason : v tach Blood Pressure : / mmHG Vent. Rate : 110 BPM Atrial Rate : 061 BPM P-R Int : 000 ms QRS Dur : 152 ms QT Int : 426 ms P-R-T Axes : 000 -89 088 degrees QTc Int : 576 ms Atrial fibrillation. with rapid ventricular response. Left axis deviation Right bundle branch block Anterior infarct (cited on or before 19-AUG-2019) Abnormal ECG When compared with ECG of 19-AUG-2019 15:00, (Unconfirmed) Atrial fibrillation. has replaced Sinus rhythm. Criteria for Inferior infarct are no longer present Questionable change in initial forces of Anterior leads Confirmed by Chris AADME, Graham Rosado ([id number]) on 08/23/2019 9:10:14 AM
--- NOTE | 2019-08-21 14:41 | CONSULTATION ---
DATE OF CONSULTATION: 08/21/2019 IMPRESSION: 1. Atrial fibrillation with moderate tachycardia developing in the setting of severe acute noncardiac illness with apparent sepsis and respiratory failure. 2. Right bundle-branch block.. 3. End stage renal disease managed with hemodialysis. 4. Peripheral vascular disease. 5. Hypertension. 6. Type 2 diabetes mellitus. RECOMMENDATIONS: 1. For now, would manage with rate control with metoprolol as needed, along with anticoagulation with heparin subcu as you are presently doing. 2. Followup echocardiography. 3. Supportive care and treatment of acute sepsis and respiratory failure. HISTORY: This is an 84-year-old, white male with type 2 diabetes mellitus, hypertension, end stage renal disease, peripheral vascular disease, coronary artery disease was admitted several days ago with progressive shortness of breath over about 72 hours. He was significantly hypoxemic and was in respiratory failure. He required intubation and mechanical ventilation. Lactate level was significantly elevated. He has been found to have acute sepsis with respiratory failure. Blood culture is positive for gram-positive cocci. This morning, he manifests wide-complex tachycardia. A 12-lead EKG demonstrates atrial flutter and right bundle-branch block. He is just coming out from under sedation, and is not able to give any significant history at this time. He remains on ventilator. PAST MEDICAL HISTORY: 1. End-stage renal disease, requiring chronic hemodialysis. 2. Type 2 diabetes mellitus. 3. Peripheral artery disease. 4. Hypertension. PAST SURGICAL HISTORY: Includes hemorrhoidectomy and fistula construction for dialysis. ALLERGIES: He has no known drug allergies. MEDICATIONS PRIOR TO ADMISSION: As listed. SOCIAL HISTORY: He does not smoke. He drinks occasional alcoholic beverage. He is . He resides in assisted living. FAMILY HISTORY: Negative for premature coronary disease. REVIEW OF SYSTEMS: Not obtainable given that the patient is on ventilator. PHYSICAL EXAMINATION: General: Elderly, white male on ventilator, who is somewhat drowsy and lethargic as sedatives were interrupted not long ago. Vital Signs: Blood pressure 96/65, heart rate 110 to 120. The ECG monitor is showing atrial flutter with right bundle- branch block. Oxygen saturation 100% on ventilator with FiO2 of 40%. HEENT: Mucous membranes are dry. Neck: Supple. Jugular venous distention cannot be appreciated. There are no carotid bruits. Chest: Auscultation of the chest reveals coarse breath sounds bilaterally. Cardiac: Regular tachycardia without appreciable murmur or gallop. Abdomen: Soft. Bowel sounds audible. Extremities: Without edema. DIAGNOSTIC DATA: A 12-lead EKG demonstrates atrial flutter with 2:1 AV conduction and a heart rate of 120 beats per minute. Right bundle-branch block demonstrated. Left axis deviation probably due to left anterior fascicular block. Nonspecific T wave abnormality. LABORATORY DATA: Includes white blood cell count of 14.24, hematocrit 41.0, hemoglobin 14.0, platelet count 124,000. Sodium 138, potassium 4.9, chloride 100, carbon dioxide 18, BUN 38, creatinine 3.9, glucose 180, albumin 2.5. Initial troponin T high-sensitivity 118. cc: Jeffy Boles MD [facility]
--- NOTE | 2019-08-21 14:50 | PROGRESS NOTE ---
DATE: 08/21/2019 INTERVAL HISTORY: The patient remains intubated and sedated. Oxygen requirements with modest improvement. One of two blood cultures on his original check now growing gram-positive cocci. No preliminary speciation yet. Afebrile overnight. The patient remains on Levophed. REVIEW OF SYSTEMS: Unable to obtain secondary to patient mental status. LABS: WBC 14.2, hemoglobin 14, hematocrit 41, platelets 124,000. ABG with pH 7.36, pCO2 of 36, PO2 of 133 on 50% oxygen via ventilator. Sodium 138, potassium 4.9, bicarbonate 18, BUN 38, creatinine 3.9, glucose 152 to 184. VITAL SIGNS: T-max 98.2 degrees, pulse 110, respirations 15, blood pressure 96/65, and O2 saturation 100% on ventilator. PHYSICAL EXAMINATION: General: No acute distress, ill appearing. HEENT: Normocephalic, atraumatic. ET tube in place. Cardiovascular: Minimally tachycardic, regular at the time of my exam. Pulmonary: Bibasilar crackles noted. Diffuse scattered rhonchi. Abdomen: Soft, nontender, nondistended. Bowel sounds positive. Extremities: Peripheral pulses intact. No clubbing or cyanosis. Neurologic: Limited by mental status, but pupils equal, round, react to light. No facial asymmetry. Psychiatric: Patient is sedated. Genitourinary: Patient with Kelly in place. ASSESSMENT AND PLAN: 1. Acute hypoxic respiratory failure, likely volume overload related to end-stage renal disease and possibly pneumonia. The patient with end-stage renal disease, had missed some dialysis and showed up with what appeared to be volume overload. Based on imaging available, cannot completely rule out pneumonia as well. He is on empiric antibiotics with vancomycin and Zosyn. Nephrology on board and dialyzing as possible given his low blood pressure. Initial blood cultures, one of two positive for gram-positive cocci. We will see what that speciates to as it may or may not be a contaminant. We will go and repeat blood cultures in the morning. 2. Septic shock, may be related to pneumonia. On empiric antibiotics as above. Initial lactate markedly elevated, but a repeat improved. Continue Levophed as needed and monitor closely in the intensive care unit. 3. Diabetes mellitus, reasonable control currently. Monitor sugars. 4. Hypertension. Holding home medications in the setting of shock. 5. Hyperlipidemia. We will restart home statin once able to take oral intake. 6. Peripheral vascular disease noted. 7. Possible urinary tract infection, on antibiotics as above.
[2019-08-21] MEDS: LOPRESSOR IV SCH (22:43)
[2019-08-22] MEDS: ZOSYN 2.25 GM in NS 50 ML IV SCH ×3 (00:16→16:03)
[2019-08-22] MEDS: ATIVAN IV PRN ×6 (00:17→19:30)
[2019-08-22] MEDS: SODIUM CHLORIDE 0.9% INJ SCH (00:17)
[2019-08-22] MEDS: PROTONIX IV SCH (00:17)
[2019-08-22] MEDS: MORPHINE IV PRN ×3 (01:07→23:28)
[2019-08-22] MEDS: LOPRESSOR IV SCH ×4 (05:04→22:21)
[2019-08-22 05:14] LABS: ALLEN TEST YES; BE -5.7 mmoll (-3.0-3.0); BLOOD TYPE ARTERIAL; HCO3-(ACT) 20.4 mmoll (20.0-26.0); METHB 0.8 % (0.0-1.5); MODALITY VENTILATOR; O2(CT) 30.5 mL/dL (15.0-23.0); O2HB 96.6 % (95.0-99.0); PCO2(98.6) 35 mmHg (35-45); PO2(98.6) 130 mmHg (60-100); SAMPLE BLOOD; SAO2 98.9 % (95.0-100.0); SRATE 15 BPM; THB 22.4 g/dL (11.5-17.4); TVOL 500 mL; pH(98.6) 7.34 (7.35-7.45)
[2019-08-22 05:47] LABS: HEMOGLOBIN 14.3 g/dL (14.0-18.0); MCH 34.7 PG (27-31); MCV 101.9 FL (81-99); MPV 10.8 FL (7.4-10.4); RBC 4.12 XMIL (4.7-6.1); RDW 17.2 % (11.5-14.5); WBC 12.88 X1000 (4.8-10.8)
[2019-08-22] MEDS: HUMULIN R SUBQ SCH ×4 (06:08→22:20)
[2019-08-22 06:29] LABS: ALBUMIN 2.3 g/dL (3.5-5.0); CALCIUM 7.8 mg/dL (8.8-10.2); CREATININE 4.8 mg/dL (0.7-1.2); PHOSPHORUS 6.1 mg/dL (2.7-4.5); POTASSIUM 5.6 mmol/L (3.5-5.1)
--- NOTE | 2019-08-22 06:54 | Diag Imaging Result Doc PS360 ---
CHEST-PORTABLE - 08/22/2019 INDICATION: dyspnea COMPARISON: 08/21/2019 FINDINGS: Support lines and tubes are stable and in good position. Stable small bilateral pleural effusions. Stable moderate cardiomegaly. No infiltrates. IMPRESSION: No change from prior. Electronically signed by Malik Pizano 08/22/2019 6:52 AM
[2019-08-22] MEDS ORDERED: NS 2,000 ML MISC PRN (07:36)
[2019-08-22] MEDS: HEPARIN SUBQ SCH ×2 (08:17→20:31)
--- NOTE | 2019-08-22 08:31 | ECHO REPORT ---
ORDER DATE: 08/21/2019 INTERPRETING PHYSICIAN: Nirav Levy MD. CLINICAL INDICATIONS: CHF, patient on ventilator. SUMMARY OF 2-DIMENSIONAL IMAGIN. The study is very difficult, is limited. 2. The left ventricle is visualized, it shows severely impaired systolic function. The chamber is probably mildly enlarged. The global ejection fraction is somewhere in the range of 15% to 20%. 3. The right ventricle and the right atrium are also moderately enlarged. 4. Left atrium also appears to be moderately to significantly enlarged. 5. Aortic valve shows sclerosis of the cusps without stenosis. 6. There is no pericardial effusion. 7. The inferior vena cava is dilated. 8. Color flow mapping was really not carried out in this study. 9. The study is limited. Clinical correlation is recommended. cc: MD Anthony Garcia MD
--- NOTE | 2019-08-22 10:44 | NEPHROLOGY PROGRESS NOTE ---
DATE: 08/22/2019 SUBJECTIVE: He is sedated, on the ventilator. OBJECTIVE: Vital Signs: Blood pressure 107/72, heart rate 108, respirations 15, temperature 99.0 degrees. Intake 600 mL. Output 26 mL. General: Unresponsive, sedated. Skin: Warm and dry. Neck: Neck veins are not appreciated. Heart: Regular. A systolic murmur. No gallops. Lungs: Equal. No audible crackles. Abdomen: Soft, nontender. Bowel sounds present. Extremities: There is 2+ edema. No clubbing or cyanosis. IMPRESSION: Chronic kidney disease 5D. He will have sustained low-efficiency dialysis today. Goal of 4 L ultrafiltration using a 3 bath, 30 bicarbonate. He remains hypotensive and on Levophed which limits his ultrafiltration. Left ventricular function was catastrophically low by echocardiogram, 10 to 15 percent. Appreciate cardiology's input. cc: Domenic Kenyon MD
[2019-08-22] MEDS: LEVOPHED 8 MG in D5 1/2 NS 250 ML IV SCH ×2 (11:15→23:30)
--- NOTE | 2019-08-22 14:26 | PROGRESS NOTE ---
DATE: 08/22/2019 INTERVAL HISTORY: The patient remains intubated and sedated. Still on Levophed. Oxygen requirements have come down a fair bit. Likely getting dialysis again today. He remains afebrile. No acute events overnight. REVIEW OF SYSTEMS: Unable to obtain secondary to patient mental status. LABS: WBC 12.8, hemoglobin 14.3, hematocrit 42.0, platelets 138. ABG with pH 7.34, pCO2 35, PO2 of 130 on ventilator with 40% oxygen. Sodium 139, potassium 5.6, BUN 54, creatinine 4.8, glucose 145 to 194, phosphorus 6.1. IMAGING: Chest x-ray with stable small bilateral effusions, otherwise largely clear. VITALS: T-max 99.0 degrees, pulse 102, respirations 15, blood pressure 102/61, O2 saturation 97% on 40% oxygen via vent. PHYSICAL EXAMINATION: General: No acute distress. Ill appearing, intubated and sedated. Vitals: As above. HEENT: Normocephalic, atraumatic. ET tube remains in place. Cardiovascular: Still slightly tachycardic, but regular. Pulmonary: Slight bibasilar crackles, a little better than previous. Still with some diffuse rhonchi, but those are also slightly improved. Abdomen: Soft, nontender, nondistended. Bowel sounds positive. Extremities: Peripheral pulses intact. No clubbing or cyanosis. Neurologic: Exam limited by intubation sedation. Pupils equal, round, reactive to light. Withdraws to noxious stimuli. No focal deficits identified. Psychiatric: Patient is sedated. : Patient with Kelly in place. ASSESSMENT AND PLAN: 1. Acute hypoxic respiratory failure, likely volume overload related to end- stage renal disease, possible pneumonia. The patient with end-stage renal disease missed some dialysis and showed up with what appeared to be volume overload. We have not been able to completely rule out pneumonia as well. The patient has been getting dialyzed and does appear to be improving slowly. On empiric antibiotics with vancomycin and Zosyn to treat possible pneumonia and because of shock as below. Nephrology on board and planning on further dialysis today. Leukocytosis does appear to be improving with antibiotic treatment. Echocardiogram has now returned with ejection fraction 15-20, so likely has an aspect of acute on chronic systolic congestive heart failure as well. 2. Septic versus cardiogenic shock. Patient admitted with volume overload related to end-stage renal disease and heart failure with hypotension. Remains on Levophed, although at a fairly low dose. Echocardiogram obtained and recently resulted with severely decreased ejection fraction 15 to 20 as below. Getting Cardiology on board. Continue Levophed as needed. Monitor closely. 3. MRSA bacteremia: patient with initial blood cultures 1of2 positive for MRSA. repeat blood culture NGTD. on vancomycin as above. will see what 2nd set of blood cultures does before deciding whether or not he may need a GAURAV once he's more stable. 4. Acute on likely chronic systolic congestive heart failure. The patient admitted with volume overload as above. Echocardiogram here showing markedly decreased ejection fraction of 15 to 20. We do not have any previous echocardiograms here for comparison, but suspect that decreased ejection fraction is chronic. Getting dialysis to assist with volume issues as above. Getting Cardiology to see him. 5. Diabetes mellitus. Control remains reasonable. Monitor. 6. Hypertension. Holding home medications in the setting of shock. 7. Hyperlipidemia. Will restart statin once he is able to take oral 8. Peripheral vascular disease noted. 9. Possible urinary tract infection on antibiotics as above, which should cover it. addendum: COVID 19 test negative. discontinuing airborne precautions. MTDD
--- NOTE | 2019-08-22 14:39 | PROGRESS NOTE ---
DATE: 08/22/2019 SUBJECTIVE: The patient is intubated on the ventilator on slow, low efficiency dialysis machine on Levophed, not responsive to being sedated. OBJECTIVE: Vital signs: Noted. Head and neck: Examined. Trachea midline. An ET tube in place. Chest exam: A few crackles bilaterally. Heart exam: S1, S2. There is +1 pedal edema. Neurologic exam: Sedated. His blood pressure today is 102/61, pulse rate 79, pulse oximetry 97 percent, temperature max 99. Input and output: He is in positive 210, but currently he is on slow, low efficiency dialysis. Creatinine 4.8, CO2 17, potassium 5.6. CMP noted. WBCs 12.88. CBC noted. A pH 7.34, pCO2 35, PO2 130 on assist-control ventilation rate of 15, FiO2 40%, tidal volume 500, PEEP of 5. Chest x- ray was reviewed from today and showed no change from prior. ASSESSMENT AND PLAN: 1. Respiratory failure, multifactorial secondary to congestive heart failure, cardiomyopathy, sepsis and shock. We titrated the ventilator to patient needs and monitored responses and will follow clinical protocols closely. 1. Pulmonary edema. 2. Sepsis and septic shock. We titrated the pressors and Levophed and monitored responses. We will keep an eye closely and follow clinical protocols. 3. Supraventricular tachycardia with rapid ventricular response and cardiomyopathy. Cardiology team's input was appreciated. 4. Continue antibiotics for sepsis. 5-On SLED for ESRD. CRITICAL CARE TIME EVALUATION: 34 minutes. cc: Anthony Capellan MD MTDD
--- NOTE | 2019-08-22 15:06 | PROGRESS NOTE ---
DATE: 08/22/2019 SUBJECTIVE: The patient continues sedated on the ventilator. He remains in atrial flutter versus atrial fibrillation. This morning he appears more likely to be in atrial fibrillation. Heart rate is reasonably controlled. OBJECTIVE: Vital Signs: Blood pressure 102/61, heart rate 102 and irregular, oxygen saturation 97% on ventilator with FiO2 of 40%. Neck: Jugular distention cannot be appreciated. Chest: Clear to auscultation anteriorly. Cardiac: Exam reveals an irregular rate and rhythm without appreciable murmur or gallop. Extremities: Without edema. LABORATORY DATA: Includes a white blood cell count of 12.88, hematocrit 42, hemoglobin 14.3, platelet count 138,000. Sodium 139, potassium 5.6, chloride 99, carbon dioxide 17, BUN 54, creatinine 4.8, glucose 182. Albumin 2.3. Echocardiography reports left ventricular ejection fraction of 15% to 20%. IMPRESSION: 1. Atrial tachyarrhythmias with atrial flutter and atrial fibrillation. Heart rate reasonably controlled. 2. Cardiomyopathy with severely depressed left ventricular ejection fraction. 3. Respiratory failure, probably multifactorial. 4. Suspected sepsis. 5. End-stage renal disease. 6. Peripheral vascular disease. 7. Hypertension. 8. Type 2 diabetes mellitus. RECOMMENDATIONS: 1. Continue metoprolol for rate control. 2. Continue subcutaneous heparin. 3. Add amiodarone in effort to restore sinus rhythm. We will give via OG tube. 4. Conservative cardiovascular management. cc: Jeffy Boles MD
[2019-08-22] MEDS: CORDARONE NG SCH (16:15)
[2019-08-22] MEDS ORDERED: VANCOMYCIN 1 GM/NS 1 GM/250 ML IVPB IV ONE (17:00)
[2019-08-23] MEDS: ZOSYN 2.25 GM in NS 50 ML IV SCH ×3 (00:21→18:03)
[2019-08-23] MEDS: PROTONIX IV SCH (00:22)
[2019-08-23] MEDS: SODIUM CHLORIDE 0.9% INJ SCH (00:22)
[2019-08-23] MEDS: ATIVAN IV PRN ×6 (01:44→17:44)
[2019-08-23 05:07] LABS: ALLEN TEST YES; BE -7.3 mmoll (-3.0-3.0); BLOOD TYPE ARTERIAL; HCO3-(ACT) 19.2 mmoll (20.0-26.0); METHB 0.9 % (0.0-1.5); O2(CT) 21.5 mL/dL (15.0-23.0); O2HB 97.3 % (95.0-99.0); PCO2(98.6) 25 mmHg (35-45); PO2(98.6) 178 mmHg (60-100); SAMPLE BLOOD; SRATE 15 BPM; THB 15.5 g/dL (11.5-17.4); TVOL 500 mL
[2019-08-23 05:10] LABS: MODALITY VENTILATOR
[2019-08-23 06:02] LABS: HEMATOCRIT 43.2 % (42.0-52.0); HEMOGLOBIN 14.8 g/dL (14.0-18.0); MCH 34.9 PG (27-31); MCHC 34.3 g/dL (33-37); MCV 101.9 FL (81-99); MPV 12.6 FL (7.4-10.4); RBC 4.24 XMIL (4.7-6.1); RDW 17.8 % (11.5-14.5); WBC 10.86 X1000 (4.8-10.8)
[2019-08-23] MEDS: LOPRESSOR IV SCH ×4 (06:08→23:36)
[2019-08-23] MEDS: HUMULIN R SUBQ SCH ×4 (06:36→20:43)
[2019-08-23 06:44] LABS: ALBUMIN 2.5 g/dL (3.5-5.0); CALCIUM 8.7 mg/dL (8.8-10.2); CREATININE 3.6 mg/dL (0.7-1.2); PHOSPHORUS 5.3 mg/dL (2.7-4.5); POTASSIUM 4.9 mmol/L (3.5-5.1)
[2019-08-23] MEDS: LEVOPHED 8 MG in D5 1/2 NS 250 ML IV SCH ×3 (08:46→18:06)
[2019-08-23] MEDS: CORDARONE NG SCH ×3 (08:46→16:38)
[2019-08-23] MEDS: HEPARIN SUBQ SCH ×2 (08:46→20:57)
[2019-08-23] MEDS ORDERED: MUCOMYST 20% INH ONE (10:12)
[2019-08-23] MEDS ORDERED: NS NEB INH SCH (10:15)
[2019-08-23] MEDS ORDERED: HEPARIN IV PRN (11:43)
[2019-08-23] MEDS ORDERED: NS 2,000 ML MISC PRN (11:43)
[2019-08-23] MEDS: XOPENEX NEB INH SCH ×4 (11:46→23:15)
--- NOTE | 2019-08-23 13:53 | PROGRESS NOTE ---
DATE: 08/23/2019 SUBJECTIVE: The patient is intubated on dialysis, sedated, in shock on pressors. OBJECTIVE: Vital signs: Noted. Head and neck: Examined with trachea midline. ET tube in place. Chest exam: A few crackles bilaterally. Cardiac exam: S1, S2. Extremity exam: Some pedal edema. Neurological exam: He is sedated and is responsive to deep pain. LABS AND INVESTIGATIONS: Were reviewed. Creatinine 3.6, CO2 17. CBC revealed WBCs 10.86. Sputum cultures showed gram-positive cocci. He is on vancomycin and final results are pending. ABG seen with pH of 7.4, CO2 25, PO2 178 on assist control of 15, FiO2 40%, tidal volume 500 and PEEP of 5. Chest x-ray from today was reviewed and showed no significant changes from prior. ASSESSMENT AND PLAN: 1. This is an 84-year-old man who presented to the hospital with respiratory failure, and we are titrating ventilator settings. The patient needs monitoring responses closely. 2. Congestive heart failure and cardiomyopathies. 3. Sepsis and septic shock with titrating pressors. The patient needs better clinical protocols and monitoring responses. 4. Pulmonary edema. 5. Titrating sedation to patient's needs and monitoring responses closely. 6. Supraventricular tachycardia with rapid response and propulsion engineer managing. 7. End-stage renal disease on slow, low efficiency dialysis and that is challenging his vascular status. He is on pressors and we will titrate him closely. CRITICAL CARE TIME EVALUATION: 81 minutes. cc: Anthony Capellan MD
[2019-08-23] MEDS: MORPHINE IV PRN (14:22)
[2019-08-23] MEDS ORDERED: VANCOMYCIN 1 GM/NS 1 GM/250 ML IVPB IV ONE (17:00)
[2019-08-23] MEDS ORDERED: TYLENOL PO PRN (17:06)
--- NOTE | 2019-08-23 17:10 | NEPHROLOGY PROGRESS NOTE ---
DATE: 08/23/2019 SUBJECTIVE: He is sedated on the ventilator, unresponsive. OBJECTIVE: Vital signs: Blood pressure 143/84, heart rate 124, respirations 15. General: As above. Skin: Warm and dry. HEENT: Conjunctivae are pink. Cardiovascular: Heart is irregular and tachycardic. Neck: Veins are distended. Lungs: Equal, no crackles. Abdomen: Soft, decreased bowel sounds. Extremities: 2+ edema. IMPRESSION: 1. Methicillin-resistant Staphylococcus aureus bacteremia and pneumonia. Presumed. Continue ventilator support, IV antibiotics. 2. Hypotension. P.r.n. Levophed. 3. Severe cardiomyopathy. 4. Chronic kidney disease 5D. Continue SLED for volume management. Electrolytes and acid-base are acceptable. cc: Domenic Kenyon MD
--- NOTE | 2019-08-23 18:42 | OPERATIVE NOTE ---
PROCEDURE DATE: 08/23/2019 PROCEDURE PERFORMED: Right femoral central venous line placement with ultrasound guidance. SURGEON: Torey Adams MD PREOPERATIVE DIAGNOSIS: Poor venous access, endstage renal disease. POSTOPERATIVE DIAGNOSIS: Poor venous access, endstage renal disease. DESCRIPTION OF PROCEDURE: The patient was on the ventilator and sedated. The right groin was evaluated, prepped and draped in a sterile fashion. We used the ultrasound to identify the right common femoral vein. We anesthetized the skin and made a stab incision. We accessed the right common femoral vein. We passed the guidewire without difficulty. We then dilated the tract and passed the triple-lumen catheter to the extent that it would go. It aspirated blood easily and then flushed each lumen with saline. We secured the flange to the skin with a silk contained within the tray. A Biostep patch was placed around the catheter exit site. Further Chloraseptic was applied to the skin around that once again, and then a sterile OpSite was applied. He tolerated it well. cc: Torey Adams MD
[2019-08-23] MEDS: MUCOMYST 20% INH SCH (19:28)
--- NOTE | 2019-08-23 20:22 | PROGRESS NOTE ---
DATE: 08/23/2019 SUBJECTIVE: The patient remains sedated on the ventilator. He has been having some mucus plugs as per the respiratory therapist and the nurse. He continues to have tachyarrhythmia. OBJECTIVE: Vital signs: Temperature 100.4 degrees, blood pressure 87/32, heart rate 106, respirations 15, O2 saturation 96% on the mechanical ventilator.General: This is a chronically ill-appearing elderly male, currently sedated on the ventilator. HEENT: Normocephalic, atraumatic. Endotracheal tube is in place. Heart: S1, S2 normal. Tachycardic. Lungs: Equal air entry bilaterally. Diminished breath sounds at the bases. Abdomen: Positive bowel sounds. Soft, nontender, nondistended. Extremities: Edema 2+ bilaterally. Neurologic: The patient is currently sedated on the ventilator. LABORATORY DATA: White blood cell count 10, hemoglobin 14, hematocrit 43, platelets 141,000. ABG pH of 7.4, pCO2 is 25, pO2 is 178, bicarbonate 19. Sodium 137, potassium 4.9, chloride 101, CO2 is 17, BUN 33, creatinine 3.6, glucose 159, calcium 8.7, phosphorus 5.3, albumin 2.5. ASSESSMENT AND PLAN: 1. Acute hypoxemic respiratory failure. Multifactorial. The patient is volume overloaded and has pneumonia. Continue with ventilatory support as well as treatment for the underlying infection and volume control via dialysis. 2. Septic shock. Likely secondary to methicillin-resistant Staphylococcus aureus bacteremia and underlying pneumonia. Continue with vancomycin. We will await the final sputum culture results. Continue with supportive care. 3. Bacteremia secondary to methicillin-resistant Staphylococcus aureus. The patient is currently on vancomycin. Repeat blood cultures were drawn yesterday. 4. Pneumonia. The sputum culture is growing gram-positive cocci. Continue with vancomycin as well as bronchodilator therapy. 5. Acute on chronic systolic congestive heart failure exacerbation. The patient's volume status is being managed with dialysis. 6. Atrial tachyarrhythmia. Continue on amiodarone and Lopressor. Cardiology is following. 7. Chronic kidney disease stage 5D. The patient is undergoing sustained low- efficiency dialysis today. 8. Hypotension. Continue with Levophed. 9. Severe cardiomyopathy with an ejection fraction of 15% to 20%. Aware. 10. Diabetes mellitus type 2. Continue with sliding scale insulin. 11. Severe protein calorie malnutrition. The patient is n.p.o. at this time. We will start tube feeds tomorrow. 12. Gastrointestinal prophylaxis. Continue on intravenous Protonix. 13. Deep vein thrombosis prophylaxis. Continue on heparin. 14. Disposition. The patient is critically ill with a high risk of mortality. cc: Maricarmen Grove MD MTDD
[2019-08-24] MEDS: LEVOPHED 8 MG in D5 1/2 NS 250 ML IV SCH ×6 (00:13→22:58)
[2019-08-24] MEDS: PROTONIX IV SCH (00:13)
[2019-08-24] MEDS: SODIUM CHLORIDE 0.9% INJ SCH (00:14)
[2019-08-24] MEDS: MORPHINE IV PRN ×2 (00:24→10:04)
[2019-08-24] MEDS: ATIVAN IV PRN ×2 (00:25→02:55)
[2019-08-24] MEDS: NEO-SYNEPHRINE 50 MG in NS 250 ML IV SCH ×7 (02:11→22:29)
[2019-08-24] MEDS: ZOSYN 2.25 GM in NS 50 ML IV SCH ×3 (02:55→17:46)
[2019-08-24] MEDS: XOPENEX NEB INH SCH ×6 (03:30→23:15)
[2019-08-24] MEDS: LOPRESSOR IV SCH (03:47)
[2019-08-24 04:59] LABS: ALLEN TEST YES; BE -11.2 mmoll (-3.0-3.0); BLOOD TYPE ARTERIAL; HCO3-(ACT) 16.2 mmoll (20.0-26.0); METHB 0.7 % (0.0-1.5); O2(CT) 23.5 mL/dL (15.0-23.0); O2HB 97.4 % (95.0-99.0); PCO2(98.6) 27 mmHg (35-45); PO2(98.6) 168 mmHg (60-100); SAMPLE BLOOD; SAO2 99.4 % (95.0-100.0); SRATE 15 BPM; TVOL 500 mL
[2019-08-24 05:00] LABS: MODALITY VENTILATOR
[2019-08-24] MEDS ORDERED: PITRESSIN 40 UNIT in NS 100 ML IV SCH (05:00)
[2019-08-24] MEDS: PITRESSIN 40 UNIT in NS 100 ML IV SCH ×3 (05:09→18:59)
[2019-08-24] MEDS ORDERED: CORDARONE ONE (05:10)
[2019-08-24] MEDS ORDERED: CORDARONE 360 MG/D5W 360 MG/200 ML IV.SOLN IV ONE (05:24)
[2019-08-24 05:31] LABS: BASO# 0.09 X1000 (0.0-0.2); BASO% 0.8 % (0.0-0.8); EOS# 0.25 X1000 (0.0-0.7); EOS% 2.2 % (0.0-10.0); IMM GRAN# 0.08 X1000 (0.0-0.04); IMM GRAN% 0.7 % (0.0-0.5); LYMPH# 1.32 X1000 (1.2-3.4); LYMPH% 11.6 % (20.5-51.1); MCV 99.8 FL (81-99); MONO# 1.71 X1000 (0.11-0.59); MPV 11.2 FL (7.4-10.4); NEUT# 7.97 X1000 (1.4-6.5); NEUT% 69.7 % (42.2-75.2); PLT 161 X1000 (130-400); RBC 4.71 XMIL (4.7-6.1); RDW 17.3 % (11.5-14.5); WBC 11.42 X1000 (4.8-10.8)
[2019-08-24 05:59] LABS: ALBUMIN 3.1 g/dL (3.5-5.0); CALCIUM 9.4 mg/dL (8.8-10.2); CREATININE 3.6 mg/dL (0.7-1.2); POTASSIUM 5.9 mmol/L (3.5-5.1)
[2019-08-24 06:11] LABS: MAGNESIUM 2.3 mg/dL (1.5-2.7)
[2019-08-24 06:12] LABS: ALB/GLOB RATIO 0.8; ALBUMIN 2.8 g/dL (3.5-5.0); DIRECT BILIRUBIN 1.4 mg/dL (0.00-0.20); TOTAL BILIRUBIN 2.12 mg/dL (0.20-1.00); TOTAL PROTEIN 6.4 g/dL (6.3-8.3)
[2019-08-24] MEDS ORDERED: NS 500 ML IV ONE ×2 (06:22→08:03)
[2019-08-24] MEDS: HUMULIN R SUBQ SCH ×4 (06:26→22:07)
--- NOTE | 2019-08-24 07:36 | Diag Imaging Result Doc PS360 ---
CHEST-PORTABLE - 08/24/2019 INDICATION: dyspnea COMPARISON: 08/22/2019 FINDINGS: Support tubes are stable and in good position. Stable cardiomegaly and pulmonary vascular congestion. There has been improvement in the bilateral lower lobe opacifications compatible with any combination of infiltrate, atelectasis, or effusion. IMPRESSION: Improved aeration of the lung bases. Electronically signed by Malik Pizano 08/24/2019 7:33 AM
[2019-08-24] MEDS: MUCOMYST 20% INH SCH ×2 (07:55→19:45)
[2019-08-24] MEDS: HEPARIN SUBQ SCH ×2 (08:10→22:06)
[2019-08-24] MEDS: CORDARONE NG SCH (08:10)
[2019-08-24] MEDS ORDERED: NS 500 ML ONE (08:11)
--- NOTE | 2019-08-24 08:50 | PROGRESS NOTE ---
DATE: 08/24/2019 SUBJECTIVE: Mr. Peacock is an 84-year-old male, who is currently intubated, being treated for acute hypoxic respiratory failure, multifactorial secondary to volume overload and pneumonia. He also does have concurrent septic shock, bacteremia secondary to MRSA, acute on chronic systolic congestive heart failure exacerbation, atrial tachyarrhythmia and chronic kidney disease stage 5 D. The patient has been undergoing sustained low efficiency dialysis for volume management. At 0511 hours this morning, a Code Blue was called due to the patient having wide QRS tachycardia, presumed to be ventricular tachycardia, without a pulse. The patient did receive approximately 1 minute of CPR before he actually became responsive and was moving his arms. They did stop compression. They checked a pulse. A pulse was present. Upon arriving to the patient's bedside, he did continue to have a wide QRS tachycardia that had a rate in the 150s. An EKG was performed which did confirm a wide QRS tachycardia. Dr. Newman, attending physician for the Hospitalist Service, was at bedside. He did review the EKG as well. He did give orders for the patient to have amiodarone bolus of 150 mg and placed on a subsequent amiodarone drip. The patient just prior to his code had vasopressin started due to worsening hypotension. Given continued hypotension, this has been started back at this time. The patient currently has vasopressors on board of Levophed, Priyank-Synephrine and vasopressin. We have ordered for the patient's morning labs to go ahead and be drawn now stat which include a CBC, CMP, magnesium, phosphorus, CK and troponin. The patient's vital signs at this time are heart rate 132, respirations 19, blood pressure is 70/47, with a MAP of 65, and oxygen saturation is 100%. As previously mentioned, he does have IV infusion drips of Levophed and Priyank-Synephrine, which are at max dose at this time, although the vasopressin has just been initiated and there still is room to titrate up if needed. The nurses will do this per protocol. Further orders and recommendations pending hospital course, diagnostic studies, and physician evaluation. Dictated by MORTEZA Simmons for Neftali Portillo MD
[2019-08-24] MEDS ORDERED: CORDARONE 540 MG in D5W 289.2 ML IV ONE (11:24)
--- NOTE | 2019-08-24 12:44 | NEPHROLOGY PROGRESS NOTE ---
DATE: 08/24/2019 SUBJECTIVE: He had a cardiovascular arrest this morning. He is currently on maximum dose of 3 different vasopressive agents and blood pressure is reading 45/35. OBJECTIVE: General: He is ashened and cyanotic. Neck: Neck veins are not visible. Heart: Heart tones are irregular and tachycardic. Lungs: Lungs are equal. Abdomen: Benign, quiet. Extremities: 2+ edema. IMPRESSION: Preterminal. I discussed this with the nephew who is the [id number]. He understands that the patient has bacteremia perhaps related to pneumonia but also perhaps related other endovascular sources that are not yet identified. He is not a candidate for dialysis today and is unlikely to survive. DNR. cc: Domenic Kenyon MD
--- NOTE | 2019-08-24 19:01 | PROGRESS NOTE ---
DATE: 08/24/2019 SUBJECTIVE: The patient is intubated on the ventilator in the intensive care unit and is being critically monitored. OBJECTIVE: Vital signs: Noted. General: He is in shock with very low blood pressure of 36/26, MAP of 26 despite maximal Levophed. He is now DNR 1. Head and neck: Examined. ET tube in place. Chest exam: Reduced air entry. Crackles bilaterally. Cardiac exam: S1, S2. Abdomen exam: Nontender. Extremities examination: +3 pedal edema. Neurologic exam: Not responsive. LABS AND INVESTIGATIONS: Creatinine 3.6, potassium 5.9, CO2 14. WBCs 11.42. CBC and CMP noted. ABG seen with pH 7.3, pCO2 27, PO2 168 on assist control of 15, FiO2 40%, and tidal volume 500, PEEP of 5. He does have monitoring of sputum, and is on the right antibiotics. Chest x-ray on August 23 was reviewed with improving aeration. ASSESSMENT: An 84-year-old man with: 1. Acute respiratory failure. 2. Pneumonia. 3. Pulmonary edema. 4. End-stage renal disease. 5. Shock. 6. Just became do not resuscitate 1. PLAN: 1. We titrated assist control to keep patient's oxygenation and will monitor responses closely 2. We titrated pressors per patient needs and he is maxed on Levophed and now he is DNR 1. 3. Continue antibiotics. 4. The family decided his nephew is the power of assistant district attorney who decided DNR 1, but not considering at this time withdrawal of care. CRITICAL CARE TIME EVALUATION: 39 minutes. cc: Anthony Capellan MD MTDD
--- NOTE | 2019-08-24 20:06 | PROGRESS NOTE ---
DATE: 08/24/2019 SUBJECTIVE: The patient appears to be actively dying. He suffered a cardiac arrest early this morning and he is hemodynamically unstable. Dr. Kenyon has spoken with the patient's power-of- assistant city attorney and the patient has been made a DNR level 1. OBJECTIVE: Vital Signs: Temperature 97.8 degrees, blood pressure 61/33, heart rate 122, respirations 22, O2 sat is 89% on the mechanical ventilator. General: This is a chronically ill- appearing elderly male unresponsive on the ventilator. HEENT: Normocephalic, atraumatic. The patient's eyes are open. He does not track. Heart: S1, S2 normal. Tachycardic. Lungs: Coarse breath sounds with crackles bilaterally. Abdomen: Hypoactive bowel sounds. Extremities: 2+ edema in the legs. Neurologic: The patient is unresponsive on the ventilator. LABORATORY DATA: White blood cell count 11, hemoglobin 16, hematocrit 47, platelets 161,000. ABG: PH of 7.3, pCO2 of 27, PO2 of 168, bicarbonate 16. Sodium 133, potassium 5.9, chloride 97, CO2 is 14, BUN 34, creatinine 3.6, glucose 304, calcium 9.4, phosphorus 7, magnesium 2.3, total bilirubin 2.1, alkaline phosphatase 217. ASSESSMENT AND PLAN: 1. Acute hypoxemic respiratory failure. Multifactorial. The patient remains on ventilatory support. 2. Status post cardiac arrest. The patient is maxed out on multiple pressors. 3. Septic shock. Unchanged. Continue with antibiotics and pressor support. 4. Bacteremia secondary to methicillin-resistant Staphylococcus aureus. Continue on vancomycin. 5. Pneumonia secondary to MRSA. Continue on vancomycin, bronchodilator therapy, and ventilatory support. 6. Acute on chronic systolic congestive heart failure exacerbation. The patient is not stable enough for dialysis at this point and Dr. Kenyon has discussed this with the power-of- assistant city attorney. 7. Chronic kidney disease stage 5D. The patient will not be undergoing dialysis today due to his instability and high likelihood of . 8. Tachyarrhythmia. Unchanged. 9. Severe cardiomyopathy with an EF of 15-20%. Aware. 10. Gastrointestinal prophylaxis. Continue on IV Protonix. 11. Nutrition. Due to the cardiac arrest and instability will hold off on initiating tube feedings today. 12. Disposition. The patient is critically ill with a high risk of mortality. Dr. Kenyon had a discussion with the patient's [id number] who opted to make the patient a DNR level 1, but to continue with the current treatment. Will consult palliative care for goals of care. cc: Maricarmen Grove MD MTDD
[2019-08-25] MEDS: NEO-SYNEPHRINE 50 MG in NS 250 ML IV SCH ×5 (01:16→12:14)
[2019-08-25] MEDS: ZOSYN 2.25 GM in NS 50 ML IV SCH ×2 (01:47→09:42)
[2019-08-25] MEDS: PITRESSIN 40 UNIT in NS 100 ML IV SCH ×2 (02:20→09:42)
[2019-08-25] MEDS: XOPENEX NEB INH SCH ×3 (03:40→11:17)
[2019-08-25] MEDS: LEVOPHED 8 MG in D5 1/2 NS 250 ML IV SCH ×2 (04:12→08:37)
[2019-08-25 05:24] LABS: BASO# 0.08 X1000 (0.0-0.2); BASO% 0.3 % (0.0-0.8); HEMATOCRIT 42.1 % (42.0-52.0); HEMOGLOBIN 13.9 g/dL (14.0-18.0); IMM GRAN# 0.68 X1000 (0.0-0.04); IMM GRAN% 2.3 % (0.0-0.5); LYMPH# 1.75 X1000 (1.2-3.4); MCH 34.8 PG (27-31); MCV 105.5 FL (81-99); MONO# 2.73 X1000 (0.11-0.59); MONO% 9.4 % (1.7-9.3); MPV 11.9 FL (7.4-10.4); NEUT# 23.88 X1000 (1.4-6.5); PLT 163 X1000 (130-400); RBC 3.99 XMIL (4.7-6.1); WBC 29.12 X1000 (4.8-10.8)
[2019-08-25 05:40] LABS: ALLEN TEST YES; BE -28.5 mmoll (-3.0-3.0); BLOOD TYPE ARTERIAL; HCO3-(ACT) 2.7 mmoll (20.0-26.0); O2(CT) 19.8 mL/dL (15.0-23.0); O2HB 96.9 % (95.0-99.0); PO2(98.6) 186 mmHg (60-100); SAMPLE BLOOD; SAO2 98.8 % (95.0-100.0); SRATE 15 BPM; THB 14.3 g/dL (11.5-17.4); TVOL 500 mL
[2019-08-25 05:42] LABS: PCO2(98.6) 17 mmHg (35-45)
[2019-08-25 05:43] LABS: MODALITY VENTILATOR
[2019-08-25 05:53] LABS: ALBUMIN 2.9 g/dL (3.5-5.0); CALCIUM 8.8 mg/dL (8.8-10.2); CREATININE 4.9 mg/dL (0.7-1.2); PHOSPHORUS 12.8 mg/dL (2.7-4.5)
[2019-08-25 06:08] LABS: POTASSIUM 7.4 mmol/L (3.5-5.1)
[2019-08-25] MEDS: MORPHINE IV PRN (07:21)
[2019-08-25] MEDS: HUMULIN R SUBQ SCH ×2 (07:21→10:44)
[2019-08-25] MEDS: MUCOMYST 20% INH SCH (08:18)
[2019-08-25] MEDS: HEPARIN SUBQ SCH (08:36)
--- NOTE | 2019-08-25 08:43 | Diag Imaging Result Doc PS360 ---
CHEST-PORTABLE - 08/25/2019 INDICATION: dyspnea COMPARISON: 08/24/2019 FINDINGS: Support tubes are stable and in good position. Stable cardiomegaly and pulmonary vascular congestion. Stable indeterminate opacification of the left lung base. Stable mild patchy atelectasis in the right lung base. IMPRESSION: No change from prior. Electronically signed by Malik Pizano 08/25/2019 8:41 AM
[2019-08-25] MEDS ORDERED: CORDARONE PO SCH (09:00)
[2019-08-25] MEDS ORDERED: D50W SYRINGE IV ONE (10:43)
[2019-08-25 12:57] VITALS: BP 38/13
--- NOTE | 2019-08-25 15:04 | PROGRESS NOTE ---
DATE: 08/25/2019 SUBJECTIVE: The patient is ill-looking; he is on multiple pressors. He is worsening. The family is aware of poor prognosis. OBJECTIVE: Vital signs: Seen. He is in shock despite max of 3 pressors. Head and neck: Trachea midline. Chest reduced entry. Cardiac: S1, S2. Abdomen: Nontender. Lower extremities: Cyanotic and not good-looking and severe edema. Neurologic: Not responsive. LABORATORIES AND INVESTIGATIONS: Potassium 7.4. Creatinine is 4.9. He is not a candidate for dialysis. He is DNR 1, and family is aware of poor prognosis. PH 6.9, pCO2 17, PO2 186 on assist- control ventilation rate of 15, FiO2 100%, PEEP of 5, tidal volume of 500. Chest x-ray was reviewed and shows no change from prior. ASSESSMENT AND PLAN: An 84-year-old male with: 1. End-stage renal disease. 2. Respiratory failure, on assist-control ventilation with general worsening. He is severely critical and a candidate for cardiac arrest at any minute and would keep on monitoring his vent settings and clinical response. 3. Pneumonia and methicillin-resistant Staphylococcus aureus, on antibiotics. We monitored his responses closely. 4. Shock on multiple pressors and now severe metabolic acidosis with end-stage renal disease and has not been a candidate for dialysis given the fact that he is in refractory shock. 5. He is Do Not Resuscitate-1, and family is aware of poor prognosis. CRITICAL CARE TIME: 42 minutes. cc: Anthony Capellan MD
--- NOTE | 2019-08-26 08:01 | EKG Report ---
Test Performed on : 08/24/2019 05:23:43 AM Test Reason : RHYTHM VHANGE Blood Pressure : / mmHG Vent. Rate : 151 BPM Atrial Rate : 153 BPM P-R Int : 000 ms QRS Dur : 136 ms QT Int : 340 ms P-R-T Axes : 000 267 092 degrees QTc Int : 538 ms Wide QRS tachycardia. Nonspecific intraventricular block Possible Right ventricular hypertrophy Inferior infarct , age undetermined Anterolateral infarct , age undetermined Abnormal ECG No previous ECGs available Confirmed by Chris ADAME, Graham Rosado ([id number]) on 08/27/2019 9:38:43 AM
[2019-08-28] MEDS ORDERED: CORDARONE PO SCH (09:00)
--- NOTE | 2019-08-28 15:32 | DISCHARGE SUMMARY ---
ADMISSION DATE: 08/19/2019 DISCHARGE DATE: 08/25/2019 FINAL DISCHARGE DIAGNOSES: 1. Acute hypoxemic respiratory failure. 2. Status post cardiac arrest. 3. Septic shock. 4. Bacteremia secondary to methicillin-resistant Staphylococcus aureus. 5. Pneumonia secondary to methicillin-resistant Staphylococcus aureus. 6. Acute on chronic systolic congestive heart failure exacerbation. 7. Chronic kidney disease stage, 5D. 8. Volume overload. 9. Tachyarrhythmia. 10. Severe cardiomyopathy with a with an ejection fraction of 15% to 20%. CONSULTATIONS: 1. Pulmonary consultation with Dr. Capellan. 2. Nephrology consultation with Dr. Kenyon. 3. Cardiology consultation with Dr. Boles. 4. Surgery consultation with Dr. Adams. HOSPITAL COURSE: Mr. Peacock is an 84-year-old male with a history of chronic kidney disease stage 5D, severe cardiomyopathy, hypertension and diabetes who presented to the hospital acute respiratory failure. There was concern about COVID-19, so the patient was tested and placed on isolation. A chest x-ray revealed pneumonia. Blood cultures were obtained and the patient was actually started on pressor support since he appeared to be in septic shock on admission. Ultimately, the patient required intubation. Pulmonary Medicine, Nephrology and Cardiology were consulted as well as General Surgery for axis. The patient was treated with vancomycin. Ultimately, the blood and sputum cultures both came back positive for methicillin-resistant Staphylococcus aureus. The patient started to develop tachyarrhythmias. Cardiology was consulted and adjustments were made to the patient's medications. The patient received SLED during his hospital stay to address the volume status. Despite full therapy, the patient's condition continued to deteriorate. Ultimately, the patient was found to be negative for COVID 19. Palliative Care was consulted for assistance with goals of care. Ultimately, the patient's condition continued to deteriorate and the family decided to make the patient a DNR level 1. On 08/25/2019 at 12:36, the patient was pronounced . The patient had no breath sounds or heart tones. The pupils were fixed and dilated. I called the patient's power of manufacturing machine operator and nephew Tab Elkins and notified him of the patient's . cc: Maricarmen Grove MD [facility]
== END 2019-08-25 12:36 | disposition expired | DRG 870 ==
LOC: ED 13:22 → ICU 17:34 → SUATTDRO 17:34 → ICU 08-22 20:30
PROVIDERS: ATTEND Internal Medicine